=== PATIENT | female | born 2000 | race Caucasian/White ===

== ENCOUNTER 2024-12-25 19:55 | Inpatient (IN) | payer BC ==
[~2024-12-25] VITALS: Ht 160 cm; Wt 94.3 kg
[2024-12-25 20:20] VITALS: PULSE 73; RESP 19; TEMP 99.4
[2024-12-25] MEDS: ALBUTEROL/IPRATROPIUM 3 ML NEB NEB ONE (21:13)
[2024-12-25] MEDS: METHYLPREDNISOLONE SOD SUCC 125 MG/2ML VIAL IV ONE (21:13)
[2024-12-25] MEDS ORDERED: LIDOCAINE HCL 2% LOCAL 20 ML VIAL ONE (22:02)
[2024-12-25] MEDS: LIDOCAINE HCL 2% LOCAL 20 ML VIAL INJ ONE (23:02)
[2024-12-25] MEDS ORDERED: Morphine 4mg INJECTION 4 MG/ML INJ IV ONE (23:15)
[2024-12-25] MEDS: Morphine 4mg INJECTION 4 MG/ML INJ IV ONE (23:33)
[2024-12-26] VITALS (11 sets, daily range): BP systolic 107–115; BP diastolic 61–74; PULSE 63–96; RESP 18–22; TEMP 98.1–98.9; O2SAT 95–100
[2024-12-26] MEDS ORDERED: CODEINE SULFATE 15 MG TAB PO PRN (00:30)
[2024-12-26] MEDS ORDERED: Morphine 4mg INJECTION 4 MG/ML INJ IV PRN (00:30)
[2024-12-26] MEDS: SODIUM CHLORIDE 0.9% 1000ML 1,000 ML IV SCH (02:33)
[2024-12-26] MEDS: GUAIFENESIN/CODEINE 5 ML LIQD PO PRN (06:16)
[2024-12-26] MEDS: ALBUTEROL SULF 0.083% NEB SOLN 3 ML NEB NEB SCH (06:32)
[2024-12-26] MEDS: IPRATROPIUM BROMIDE 0.02% 2.5 ML NEB NEB SCH (06:33)
[2024-12-26] MEDS ORDERED: ONDANSETRON HCL INJ 2MG/ML 2ML 2 MG/ML VIAL IV PRN (10:45)
[2024-12-26] MEDS ORDERED: HYDRALAZINE HCL 20 MG/ML VIAL IV PRN (10:45)
[2024-12-26] MEDS ORDERED: POLYETHYLENE GLYCOL 3350 17 GM PACK PO PRN (10:45)
[2024-12-26] MEDS: METHYLPREDNISOLONE SOD SUCC 40 MG/ML VIAL 1ML IV ONE (12:00)
[2024-12-26] MEDS: DOCUSATE SODIUM 100 MG CAP PO SCH (17:12)
[2024-12-27] VITALS (9 sets, daily range): BP systolic 114–124; BP diastolic 58–73; PULSE 53–82; RESP 16–20; TEMP 97.7–98.3; O2SAT 96–100
[2024-12-27 06:02] LABS: BASOPHILS % 0.1 % (0.0-1.0); EOSINOPHILS % 0.1 % (0.0-6.0); HEMATOCRIT 37.6 % (34.2-44.1); HEMOGLOBIN 12.8 g/dL (12.0-16.0); LYMPHOCYTES # (AUTO) 3.2 (1.0-3.2); LYMPHOCYTES % 38.1 % (18.0-39.1); MEAN CORPUSCULAR HEMOGLOBIN 30.3 pg (28-32); MEAN CORPUSCULAR VOLUME 89.1 fL (81-99); MONOCYTES # (AUTO) 0.8 (0.2-0.8); MONOCYTES % 10.1 % (4.4-11.3); NEUTROPHILS # (AUTO) 4.3 (2.1-6.9); NEUTROPHILS % 51.4 % (38.7-80.0); PLATELET COUNT 260 x10e3/uL (140-360); RED BLOOD COUNT 4.22 x10e6/uL (3.6-5.1); RED CELL DISTRIBUTION WIDTH 13.9 % (11.7-14.4); WHITE BLOOD COUNT 8.29 x10e3/uL (4.8-10.8)
[2024-12-27 06:21] LABS: ALBUMIN 3.4 g/dL (3.5-5.0); ALBUMIN/GLOBULIN RATIO 1.1 (0.8-2.0); ANION GAP 12.9 mmol/L (8-16); BILIRUBIN,TOTAL 0.3 mg/dL (0.2-1.2); CREATININE, SERUM 0.66 mg/dL (0.57-1.11); POTASSIUM 3.9 mmol/L (3.5-5.1); TOTAL PROTEIN 6.5 g/dL (6.5-8.1)
[2024-12-27] MEDS: IPRATROPIUM BROMIDE 0.02% 2.5 ML NEB NEB PRN (22:35)
[2024-12-27] MEDS: ALBUTEROL SULF 0.083% NEB SOLN 3 ML NEB NEB PRN (22:36)
[2024-12-28] VITALS (13 sets, daily range): BP systolic 102–135; BP diastolic 54–86; PULSE 54–96; RESP 16–20; TEMP 97.7–98.4; O2SAT 93–100
[2024-12-28] MEDS: ALBUTEROL SULF 0.083% NEB SOLN 3 ML NEB NEB SCH (11:29)
[2024-12-28] MEDS: IPRATROPIUM BROMIDE 0.02% 2.5 ML NEB NEB SCH (11:30)
[2024-12-28] MEDS: METHYLPREDNISOLONE SOD SUCC 40 MG/ML VIAL 1ML IV ONE (11:41)
[2024-12-28] MEDS: WATER STERILE 10 ML VIAL IV SCH (11:41)
[2024-12-28] MEDS: ACETAMINOPHEN 325 MG TAB PO PRN (11:41)
[2024-12-28 17:38] LABS: HIV 1&2 AB SCREEN NON-REACTIVE (NONREACTIVE); HIV- 1 P24 AG SCREEN NON-REACTIVE (NONREACTIVE)
[2024-12-29] VITALS (9 sets, daily range): BP systolic 103–120; BP diastolic 57–80; PULSE 52–71; RESP 16–20; TEMP 97.7–98.2; O2SAT 95–100
[2024-12-29 06:23] LABS: BASOPHILS % 0.2 % (0.0-1.0); EOSINOPHILS % 0.2 % (0.0-6.0); HEMATOCRIT 38.2 % (34.2-44.1); HEMOGLOBIN 12.6 g/dL (12.0-16.0); LYMPHOCYTES # (AUTO) 3.6 (1.0-3.2); MEAN CORPUSCULAR HEMOGLOBIN 30.2 pg (28-32); MEAN CORPUSCULAR VOLUME 91.6 fL (81-99); MONOCYTES # (AUTO) 0.6 (0.2-0.8); MONOCYTES % 5.8 % (4.4-11.3); NEUTROPHILS % 58.3 % (38.7-80.0); PLATELET COUNT 284 x10e3/uL (140-360); RED BLOOD COUNT 4.17 x10e6/uL (3.6-5.1); RED CELL DISTRIBUTION WIDTH 13.5 % (11.7-14.4)
[2024-12-29 07:02] LABS: ANION GAP 13.4 mmol/L (8-16); CALCIUM 8.7 mg/dL (8.4-10.2); CREATININE, SERUM 0.69 mg/dL (0.57-1.11); MAGNESIUM 2.3 MG/DL (1.3-2.1)
[2024-12-29 07:03] LABS: POTASSIUM 3.4 mmol/L (3.5-5.1)
[2024-12-29 09:37] LABS: LYMPHOCYTES % (MANUAL) 34 % (19-48); MONOCYTES % (MANUAL) 5 % (3.4-9.0); NEUTROPHILS % (MANUAL) 56 % (40-74); PLATELET ESTIMATE ADEQUATE; PLATELET MORPHOLOGY COMMENT NORMAL; RBC MORPHOLOGY COMMENT NORMAL; REACTIVE LYMPHOCYTES 5
[2024-12-29] MEDS: METHYLPREDNISOLONE SOD SUCC 40 MG/ML VIAL 1ML IV ONE (15:21)
[2024-12-29] MEDS: POTASSIUM CHLORIDE 10MEQ EA PO ONE (18:05)
[2024-12-29] MEDS ORDERED: ACETAMINOPHEN325 M1 PO (18:59)
[2024-12-29] MEDS ORDERED: AZITHROMYCIN250 MG PO (18:59)
[2024-12-29] MEDS ORDERED: CEFUROXIME250 MG PO (18:59)
[2024-12-29] MEDS ORDERED: VENTOLIN HFA18 GM INH (18:59)
[2024-12-29] MEDS ORDERED: ONDANSETRON ODT4 MG PO (18:59)
[2024-12-29] MEDS ORDERED: GUAIFEN-CODEINE5 ML PO (18:59)
[2024-12-31 09:56] LABS: MYCOPLASMA PNEUMO IGG 158 U/mL (0-99); MYCOPLASMA PNEUMO IGM <770 U/mL (0-769)
[2025-01-04 06:06] LABS: TOXOPLASMA IGM ANTIBODY <3.0
[2025-01-04 06:07] LABS: TOXOPLASMA IGG ANTIBODY <3.0
== END 2024-12-29 19:58 | disposition home or self-care (01) | DRG 195 ==
LOC: FSED 20:23 → ERHOLD 12-26 00:30 → MED/SURG3 12-26 01:46
PROVIDERS: ADMIT Internal Medicine; ATTEND Internal Medicine
DX: J18.9 Pneumonia, unspecified organism (principal); J20.9 Acute bronchitis, unspecified; R05.3 Chronic cough; F17.290 Nicotine dependence, other tobacco product, uncomplicated; Z71.6 Tobacco abuse counseling; Z71.3 Dietary counseling and surveillance; Z68.36 Body mass index [BMI] 36.0-36.9, adult; Z86.69 Personal history of other diseases of the nervous system and sense organs; Z71.81 Spiritual or religious counseling; Z79.899 Other long term (current) drug therapy
CPT/HCPCS: 0223U; 36415; 71045; 71250; 80048; 80053; 81003; 81025; 83518; 83735; 84100; 85025; 86738; 86777; 86778; 87390; 87400; 87420; 94640; 94799; 96374; 96375; 99284; G0433; G0435; J0696; J2003; J2270; J2919; J7030; J7050